=== PATIENT | male | born 2005 | race Two or more races ===

== ENCOUNTER 2024-11-08 09:20 | Emergency (ER) | payer OTHER ==
[~2024-11-08] VITALS: Ht 177.8 cm; Wt 63.6 kg
[2024-11-08 10:39] VITALS: BP 142/84; PULSE 88; RESP 14; TEMP 97.7; O2SAT 99
[2024-11-08] MEDS ORDERED: NITR-87 PO (11:20)
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
[2024-11-08] MEDS: NEOMYCIN-BACITRACIN-POLYM UNITDOSE PKG TOP OINT TOP ONE (11:23)
== END 2024-11-08 11:21 | disposition home or self-care (01) ==
LOC: ER 09:20 → EDBD 09:20 → ER 11:21
DX: S61.411A Laceration without foreign body of right hand, initial encounter (principal); R30.0 Dysuria; W22.01XA Walked into wall, initial encounter; Y93.89 Activity, other specified; Y92.89 Other specified places as the place of occurrence of the external cause; Y99.8 Other external cause status

== ENCOUNTER 2024-11-08 22:02 | Emergency (ER) | payer OTHER ==
[~2024-11-08] VITALS: Ht 177.8 cm; Wt 62.3 kg
[~2024-11-08 22:02] MED LIST: NITR-87 PO
[2024-11-08 22:04] VITALS: BP 140/91; PULSE 82; RESP 16; O2SAT 100
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
== END 2024-11-08 23:56 ==
LOC: ER 22:02
DX: F32.89 Other specified depressive episodes (principal); R45.851 Suicidal ideations; Y04.0XXA Assault by unarmed brawl or fight, initial encounter; Y07.9 Unspecified perpetrator of maltreatment and neglect